=== PATIENT | female | born 1975 | race American Indian/Alaskan Native ===

== ENCOUNTER 2019-07-21 17:59 | Emergency (ER) | payer OTHER ==
[2019-07-21 21:50] VITALS: BP 139/93
--- NOTE | 2019-07-21 21:52 | Emergency Department Report ---
Chief Complaint: Upper Respiratory Infection Stated Complaint: HEADACHE/BODYACHE/SORE THROAT Time Seen by Provider: 07/21/19 21:47 - HPI History of Present Illness: 44 y/o female comes in for body aches, nausea, fever, cough time 3 day. LMP 06/19/19. PMH HTN. Meds HCTZ 25mg daily. thera flu, dayquil. - Exam Physical Exam: Axo times 3 NAD Non toxic Chest CTAB no chest wal tenderness Heart RRR Mouth moist throat normal neuro ambulating well. MSE screening note: Focused history and physical exam performed. Due to findings the following was ordered: 44 y/o female comes in for body aches, nausea, fever, cough time 3 day. LMP 06/19/19. PMH HTN. Meds HCTZ 25mg daily. thera flu, dayquil. Increase fluids take Over the counter Claritin or Zyrtec , Flonase, Robitussin and REST ED Disposition for MSE Clinical Impression: Flu-like symptoms Disposition: MED SCREENING EXAM-LEFT Is pt being admited?: No Does the pt Need Aspirin: No Condition: Stable Instructions: Viral Syndrome (ED) Additional Instructions: Increase fluids take Over the counter Claritin or Zyrtec , Flonase, Robitussin and REST Referrals: MALA PATRICK MD [Staff Physician] - 3-5 Days Forms: Work/School Release Form(ED)
== END 2019-07-21 22:02 | disposition left against medical advice (07) ==
LOC: ED 17:59
DX: J11.1 Influenza due to unidentified influenza virus with other respiratory manifestations (principal)
CPT/HCPCS: 99282